=== PATIENT | male | born 1950 | race Caucasian/White ===

== ENCOUNTER 2017-09-12 16:01 | Outpatient (RCR) | payer OTHER ==
--- NOTE | 2017-08-02 17:28 | PT INITIAL EVALUATION ---
MEDICAL DIAGNOSIS: L shoulder discomfort-R/O Rotator Cuff Strain/Irritation/Tear TREATMENT DIAGNOSIS: same DATE OF ONSET: 01/30/17 SUBJECTIVE: Jamarcus Butler presents to physical therapy with complaints of L shoulder pain the started approximately 6 months ago and has been getting worse and worse with time especially with the work that he is required to perform. At resting, he rates his L shoulder pain to be 0/10. He rates his pain to be 7/10 with any motions that require IR and ER of his L shoulder. He rates his pain to be worse in the morning and at night and especially with movements that involve IR and ER of the L shoulder. He reports that he had an x -ray and it appears that he has plenty of space with mild arthritis with bone spurring. He states that the pain feels like a broad dull ache and cannot pinpoint a certain region. He reports that he pain starts in the front of his shoulder and moves to the lateral side of his shoulder before moving down into the shoulder blade. REHAB PROBLEM LIST: Increased Pain Decreased ROM Decreased Strength Decreased Endurance Decreased Function Decreased ADL's PREVIOUS MEDICAL HISTORY: See EMR OCCUPATION: [employer] OBJECTIVE: Posture: He demonstrated B rounded shoulders, increased thoracic kyphosis, and decreased lumbar lordosis. ROM: L shoulder AROM: flexion: full with normal end feel, abduction: full; painful arc; empty end feel. IR: 50% reduced, empty end feel, ER: 50% reduced, empty end feel, scaption: full, normal end feel. Strength: L shoulder: flexion: 4+/5 with pain, abduction: 4+/5 with pain, scaption: 4+/5 with pain. IR: 3+/5 with pain, ER: 3+/5 with pain. Palpation: TTP: insertional points of LHB, infraspinatus, teres minor, and subscapularis. Special Tests: (+) impingement: yocums, neers, payan-Alden, (-) full tear within RTC structures, (+) tendinopathy: LHB, infraspinatus and/or teres minor , and subscapularis. Normal scapulothoracic rhythm Mobility: Independent Gait: Normal gait mechanics ASSESSMENT: Jamarcus will benefit from skilled physical therapy addressing the listed impairments to return to prior level of function. Following the examination, we found that he has a directional preference of L shoulder internal rotation with extension and by the end of the session, we were able to abolish his painful arc and improve L shoulder IR and ER AROM to full motion with abolished pain. Short Term Goals 4 weeks: Pt will demonstrate full AROM of L shoulder (IR/ER, flexion, scaption , and abduction) with 0/10 pain to improve function and QOL. 4 weeks: Pt will demonstrate 4/5 strength with 0/10 pain in the L shoulder with flexion, extension, scaption, abduction, IR, and ER to improve function and QOL. Patient's Goals reduce shoulder and avoid surgery PLAN: Patient to be seen for Manual Therapy/STM/MET Strengthening/condition Ice/Heat Range of Motion Spinal Stabilization Work Hardening/Cond Stretching Iontophoresis Neuromuscular Re-ed Closed Chain Program Electrical Stim Posture/Body mechanics Home Exercise Program Therapeutic Activities 2x/Week for 4 Weeks If you have any questions, comments, or concerns about this report or plan, please contact me at . Thank you, Charlie Stewart, PT, DPT RAHULD
[~2017-09-12 16:01] MED LIST: ALL300 PO; INDO25CA PO; LIR18IPT SUBQ; LISI-368 PO; LOSA-51 PO; METF-410 PO; PRED20TA6 PO
--- NOTE | 2017-09-13 09:28 | PT PLAN OF CARE ---
Physician: Jamarcus Mathews MD Patient is being seen: 2x/week Therapist: Charlie Stewart, PT, DPT Medical Diagnosis: L shoulder discomfort-R/O Rotator Cuff Strain/Irritation/Tear Treatment Diagnosis: same Date of Onset: 01/30/17 Date of Initial Evaluation: 08/02/17 Date patient was last seen: 09/12/17 Number of treatments: 10 Number of cancellations/No shows: 0 INTERVENTIONS: Manual Therapy/STM/MET Strengthening/condition Ice/Heat Range of Motion Spinal Stabilization Work Hardening/Cond Stretching Iontophoresis Neuromuscular Re-ed Closed Chain Program Electrical Stim Posture/Body mechanics Home Exercise Program Therapeutic Activities GOALS: 4 weeks: Pt will demonstrate full AROM of L shoulder (IR/ER, flexion, scaption , and abduction) with 0/10 pain to improve function and QOL. MET 4 weeks: Pt will demonstrate 4/5 strength with 0/10 pain in the L shoulder with flexion, extension, scaption, abduction, IR, and ER to improve function and QOL. Progressing well PATIENT'S GOAL: reduce shoulder and avoid surgery Status of Patient's Goals: progressing well Patient Compliance: Good Prognosis: Excellent Reasons for continuing therapy: This is a progress note for Jamarcus Carrie. He reports that he feels like things are going well. He states that he feels like he has returned to full function. He reports that the deep pain has resolved. He states that he occasionally has RTC referred pain into mid lateral deltoid, however, he reports that he can improve and abolish the pain quickly with his stretch. He is progressing well within PT with the following improvements: (-) impingement tests, improved RTC strength with decreased pain, however, he continues to demonstrate RTC involvement with resisted abduction and resisted ER. He also demonstrates directional preference with repeated horizontal adduction and following 80-100 reps, he demonstrated improved strengths with abduction and ER without any pain. We will continue to improve RTC musculature to further reduce pain and improve strength to return to prior level of function. Posture: He demonstrated B rounded shoulders, increased thoracic kyphosis, and decreased lumbar lordosis. ROM: L shoulder AROM: flexion: full with normal end feel, abduction: full; normal end feel. IR: full, normal end feel, ER: full, normal end feel, scaption : full, normal end feel. Strength: L shoulder: flexion: 4+/5 with no pain, abduction: 4+/5 with pain, scaption: 4+/5 with no pain. IR:4+/5 with no pain, ER: 4/5 with no pain. Special Tests: (-) impingement: boris, marisa, Willis, (-) full tear within RTC structures, (+) tendinopathy: infraspinatus and/or teres minor. Normal scapulothoracic rhythm Mobility: Independent If you have any questions, please contact me at [phone]. Thank you, Charlie Stewart, PT, DPT MTDD
--- NOTE | 2017-09-22 17:51 | PT PLAN OF CARE ---
Physician: Jamarcus Mathews MD Patient is being seen: 2x/week Therapist: Charlie Stewart, PT, DPT Medical Diagnosis: L shoulder discomfort-R/O Rotator Cuff Strain/Irritation/Tear Treatment Diagnosis: same Date of Onset: 01/30/17 Date of Initial Evaluation: 08/02/17 Date patient was last seen: 09/21/17 Number of treatments: 11 Number of cancellations/No shows: 1 INTERVENTIONS: Manual Therapy/STM/MET Strengthening/condition Ice/Heat Range of Motion Spinal Stabilization Work Hardening/Cond Stretching Iontophoresis Neuromuscular Re-ed Closed Chain Program Electrical Stim Posture/Body mechanics Home Exercise Program Therapeutic Activities GOALS: 4 weeks: Pt will demonstrate full AROM of L shoulder (IR/ER, flexion, scaption , and abduction) with 0/10 pain to improve function and QOL. MET 4 weeks: Pt will demonstrate 4/5 strength with 0/10 pain in the L shoulder with flexion, extension, scaption, abduction, IR, and ER to improve function and QOL. MET PATIENT'S GOAL: reduce shoulder and avoid surgery Status of Patient's Goals: MET Patient Compliance: Good Prognosis: Excellent Reasons for continuing therapy: This is a discharge note for Jamarcus Butler. He reports that he feels like things are going well. He states that he feels like he has returned to full function. He reports that the deep pain has resolved. He states that he is sleeping well. He is progressing well within PT with the following improvements: (-) impingement tests and improved RTC strength with decreased pain. Today, he no longer demonstrated weakness or pain with abduction or ER. He has met all of his goals. He is independent in his HEP. As a result, he will be discharged from PT. Posture: He demonstrated B rounded shoulders, increased thoracic kyphosis, and decreased lumbar lordosis. ROM: L shoulder AROM: flexion: full with normal end feel, abduction: full; normal end feel. IR: full, normal end feel, ER: full, normal end feel, scaption : full, normal end feel. Strength: L shoulder: flexion: 4+/5 with no pain, abduction: 4+/5 with no pain , scaption: 4+/5 with no pain. IR:4+/5 with no pain, ER: 4/5 with no pain. Special Tests: (-) impingement: yocums, Willis cunningham, (-) full tear within RTC structures, (-) tendinopathy: infraspinatus and/or teres minor. Normal scapulothoracic rhythm Mobility: Independent If you have any questions, please contact me at [phone]. Thank you, Charlie Stewart, PT, DPT RAHULD
== END 2017-09-12 18:00 | disposition home or self-care (01) ==
LOC: PT 16:01
PROVIDERS: ATTEND Orthopaedic Surgery Hand Surgery
DX: M25.512 Pain in left shoulder (principal); M19.012 Primary osteoarthritis, left shoulder
CPT/HCPCS: 97161

== ENCOUNTER 2018-07-13 15:15 | Outpatient (RCR) | payer OTHER ==
--- NOTE | 2018-07-04 08:41 | PT INITIAL EVALUATION ---
MEDICAL DIAGNOSIS: low back leg pain TREATMENT DIAGNOSIS: same DATE OF ONSET: 06/04/18 SUBJECTIVE: Jamarcus Butler presents to physical therapy with complaints of low back pain radiating down his B LE's that started on June 04, 2018 as a result of no apparent reason when he was walking his dog. He reports that he felt stiffness in the am and then during the walk he felt back spasms associated with intense sharp pain down into his B LE's. He reports that he is currently seeing a chiropractor and has received laser and adjustments so far with minimal results. He reports that he has also received some traction and states that it feels better following the traction but better symptoms do not last and typically he feels worse following the day after traction. He reports that he feels like his injury is getting better. He reports that his pain is worse in the am and pm; however, during the middle of the day is his best time. He reports that it also feels better sitting with lumbar support and feels worse with sitting down without a lumbar support, standing for more than 5 to 10 minutes, and walking more than 100 feet. As a result of this low back pain and radiating pain, he reports that he has fall three times. He reports that he continues to have difficulty sleeping and is only able to sleep about 3-4 hours. He reports that he feels the low back pain about 50% of the time, anterior pain below the knees all the time, and posterior/anterior thighs sometimes. He reports in increased pain with coughing, sneezing, or straining. He reports no changes in bowel or bladder. He reports night pain. He reports that he had a laminectomy in 1983 as a result of an accident. He reports no unexplained weight loss and no recent accidents (other than the falls). Pain scale is 6 on a ten point pain scale. REHAB PROBLEM LIST: Increased Pain Decreased ROM Decreased Strength Impaired Transfers Decreased Endurance Decreased Function Decreased ADL's Decreased Mobility Decreased Gait PREVIOUS MEDICAL HISTORY: See EMR OCCUPATION: Self-employed: shoemaker [employer] OBJECTIVE: Posture: He demonstrates slumped posture with increased forward head, rounded shoulders, increased thoracic kyphosis, and decreased lumbar lordosis. ROM: Trunk AROM: flexion: moderate restriction with painful end feel. extension: NIL with ERP. side gliding R: NIL and relieved R marlow pain. side gliding L: minimal restriction with ERP. Palpation: TTP: low back pain about 50% of the time (L3-L5 central spinous process), anterior pain (tib anterior distribution) below the knees all the time, and posterior/anterior thighs sometimes Special Tests: Repeated flexion: decreased low back pain, peripheralising to B LE's below B knees on anterior side during the test and peripheralised following the test; increased flexion AROM and decreased extension AROM. Repeated extension: increased low back pain, centralizing during the movement and centralized following the movement. Mobility: Modified Independent Gait: He demonstrated the following gait mechanics with cane: antalgic gait, decreased B step lengths, and decreased velocity; it will improve when low back recovers ASSESSMENT: Jmaarcus will benefit from skilled physical therapy addressing the listed impairments. His provisional classification is posterior derangement that responded well to extension based principles. Based on his initial examination, his prognosis is excellent for a quick reversal and quick return to function if his specific exercise and posture correction is achieved as prescribed. Short Term Goals 1 week: Pt will demonstrate centralized low back pain to improve function and QOL. 2 weeks: Pt will demonstrate abolished radiating pain along with abolished low back pain to improve function and QOL. 3 weeks: Pt will demonstrate return to function without any low back pain or radiating pain to improve function and QOL. Patient's Goals get rid of pain PLAN: Patient to be seen for Manual Therapy/STM/MET Range of Motion Spinal Stabilization Work Hardening/Cond Stretching Neuromuscular Re-ed Closed Chain Program Posture/Body mechanics Home Exercise Program Therapeutic Activities 2x/Week for 3 weeks If you have any questions, comments, or concerns about this report or plan, please contact me at . Thank you, Charlie Stewart, PT, DPT MTDD
[~2018-07-13 15:15] MED LIST changes: -METF-410 PO; +METF-450 PO
--- NOTE | 2018-08-15 16:20 | PT PLAN OF CARE ---
Physician: Leida Baker MD Patient is being seen: 2x/week Therapist: Charlie Stewart, PT, DPT Medical Diagnosis: low back leg pain Treatment Diagnosis: same Date of Onset: 06/04/18 Date of Initial Evaluation: 07/03/18 Date patient was last seen: 07/13/18 Number of treatments: 5 Number of cancellations/No shows: 0 INTERVENTIONS: Manual Therapy/STM/MET Range of Motion Spinal Stabilization Work Hardening/Cond Stretching Neuromuscular Re-ed Closed Chain Program Posture/Body mechanics Home Exercise Program Therapeutic Activities GOALS: 1 week: Pt will demonstrate centralized low back pain to improve function and QOL. 2 weeks: Pt will demonstrate abolished radiating pain along with abolished low back pain to improve function and QOL. 3 weeks: Pt will demonstrate return to function without any low back pain or radiating pain to improve function and QOL. PATIENT'S GOAL: get rid of pain Status of Patient's Goals: Unknown Patient Compliance: Good Prognosis: Excellent Reasons for continuing therapy: This is a discharge note for Jamarcus Clarosarti. On our last contact, he reported the following: He reports that he is doing better. He reports that he has the most pain in the morning time. He reports that his pain continues to centralize and will every once in a while affect his R or L posterior thigh but centralizes every time with his specific exercise. He reports that he was able to work for 12 hours without taking any pain medication. He reports that he is able to walk up and down stairs. He reports that the pain is getting less and his function is getting more and more. This is the assessment on my last contact with him: He continues to demonstrate centralizing pain and extension continues to be his directional preference and his centralizing pain is starting to decrease from sharp to soreness along with increased trunk AROM in all directions. With a directional preference and centralized pain like he demonstrated, the research says that he has a 90% chance of making a full recovery with physical therapy. However, he will not schedule or call us back; therefore, he will be discharged from PT even though his prognosis is excellent based on our 5 sessions with him. Posture: He demonstrates slumped posture with increased forward head, rounded shoulders, increased thoracic kyphosis, and decreased lumbar lordosis. ROM: Trunk AROM: flexion: NIL with painful end feel. extension: NIL with ERP. side gliding R: NIL and relieved R marlow pain. side gliding L: NIL with ERP. Palpation: TTP: low back pain about 100% of the time (L3-L5 central spinous process) Special Tests: Repeated flexion: decreased low back pain, peripheralising to B LE's below B knees on anterior side during the test and peripheralised following the test; increased flexion AROM and decreased extension AROM. Repeated extension: increased low back pain, centralizing during the movement and centralized following the movement. Mobility: Independent MTDD
== END 2018-07-13 18:00 | disposition home or self-care (01) ==
LOC: PT 15:15
PROVIDERS: ATTEND Orthopaedic Surgery
DX: M54.5 Low back pain (principal); M79.604 Pain in right leg; M79.605 Pain in left leg; R29.6 Repeated falls
CPT/HCPCS: 97161

== ENCOUNTER → 2018-09-28 | Outpatient (CLI) | payer OTHER ==
--- NOTE | 2018-09-28 13:31 | RADIOLOGY IMAGING REPORT ---
FACILITY: [facility] [place] PATIENT NAME: Jamarcus Butler : 1950 MR: [id number] V: [id number] EXAM DATE: ORDERING PHYSICIAN: THONY KELLER TECHNOLOGIST: Location: [facility] Patient: Jamarcus Butler : 1950 Visit/Account:[id number] Date of Sevice: 09/28/2018 Exam type: CHEST PA LAT History: Preop, hypoxemia Comparison: November 21, 2016. Findings: When compared the prior study again noted is chronic peribronchial thickening and prominent chronic i nterstitial changes but the lungs. There is no evidence of acute pulmonary consolidation pleural eff usions or overt pulmonary edema. The cardiac silhouette is normal in size. There are spondylotic ch anges of the thoracic spine. IMPRESSION: 1. Chronic peribronchial thickening and chronic initial changes but the lungs appears similar to the prior study. Report Dictated By: Kaela Aden MD at 09/28/2018 1:26 PM Report E-Signed By: Kaela Aden MD at 09/28/2018 1:28 PM WSN:[id number]
== END ==
LOC: RAD 11:59
PROVIDERS: ATTEND Family Medicine
DX: R09.02 Hypoxemia (principal)
CPT/HCPCS: 71046

== ENCOUNTER 2018-12-12 16:19 | Outpatient (RCR) | payer OTHER ==
--- NOTE | 2018-10-31 11:06 | PT INITIAL EVALUATION ---
MEDICAL DIAGNOSIS: 2 weeks S/P L3-4 Laminectomies TREATMENT DIAGNOSIS: same, decreased strength, altered gait, and decreased balance DATE OF ONSET: 06/04/18 SUBJECTIVE: Jamarcus Butler presents to physical therapy s/p L3-4 laminectomies that was performed on the September. He reports that he was instructed to not lift more than 20 pounds, no twisting, and bending forward/backward/side to side. He reports that he is pain is so much better. He reports that he has central pain around the incision but feels like the bruising has cleared up. He rates his current pain to be 1/10. He reports that he has not felt any pain in his B LE's since the surgical intervention was performed. He reports that his biggest problems include: balance, going down stairs, standing longer than 30 minutes, transiting from sit to/from standing, ambulation, and B LE strength with his R LE being more affected than his L LE. Furthermore, he reports that his leg has not given out since the surgical intervention, but has felt like it was going to give out just the other day. He reports that he has also had spasms around the center of his low back that seem to be getting less severe and less often. Pain location is L2-L5 central. Pain scale is 1 on a ten point pain scale. REHAB PROBLEM LIST: Increased Pain Decreased ROM Decreased Strength Decreased Endurance Decreased Balance Decreased Function Decreased Mobility Decreased Gait PREVIOUS MEDICAL HISTORY: See EMR OCCUPATION: Shoemaker; owns own business OBJECTIVE: Incision is healing well; no signs or symptoms of infections Posture: He demonstrates increased thoracic kyphosis, B rounded shoulders, decreased lumbar lordosis, and forward head. ROM: Did not test trunk AROM due to recent surgical intervention Strength: B hip flexion and extension: did not test due to recent surgical intervention. B hip abduction, adduction, B knee flexion and extension, and B ankle PF and DF: 4/5 and seemed equal. Palpation: TTP around incision Sensation: Intact: L2-S1 equal B Special Tests: 6 minute walk test: 812 feet Mobility: Independent Gait: With gait and no AD: he demonstrated the following gait mechanics: increased base of support, decreased pelvic rotation, equal step lengths, normal B foot clearance, increased lateral trunk movement, and decreased velocity. Balance: He demonstrated normal balance strategies with firm surface, eyes opened or closed, and normal base of support or decreased base of support, however, he did demonstrate increased sway when the eyes were closed. When the vestibular system is isolated he is only able to maintain his balance for 5 seconds B. ASSESSMENT: Jamarcus will benefit from skilled physical therapy addressing the listed impairments to improve function and QOL based on healing parameters. Addressed sitting and standing posture and is independent Short Term Goals 6 weeks: Pt will demonstrate return to prior level of function with his gait mechanics to improve function and QOL. 6 weeks: Pt will demonstrate 5/5 B LE strength along with increased core strength to improve function and QOL. 6 weeks: Pt will improve his balance when the vestibular system is isolated from baseline to 30 seconds or greater to improve function and QOL. Patient's Goals improve strength, going down stairs, balance, and posture PLAN: Patient to be seen for Manual Therapy/STM/MET Strengthening/condition Ice/Heat Range of Motion Spinal Stabilization Work Hardening/Cond Stretching Neuromuscular Re-ed Closed Chain Program Electrical Stim Posture/Body mechanics Gait Trg/Balance Trg Home Exercise Program Therapeutic Activities 2-3x/week for 6 Weeks If you have any questions, comments, or concerns about this report or plan, please contact me at . Thank you, Charlie Stewart, PT, DPT RAHULD
--- NOTE | 2018-12-12 17:58 | PT PLAN OF CARE ---
Physician: Leonel Baker MD Patient is being seen: 2-3x/week Therapist: Charlie Stewart, PT, DPT Medical Diagnosis: 2 weeks S/P L3-4 Laminectomies Treatment Diagnosis: same, decreased strength, altered gait, and decreased balance Date of Onset: 06/04/18 Date of Initial Evaluation: 10/31/18 Date patient was last seen: 12/12/18 Number of treatments: 12 Number of cancellations/No shows: 0 INTERVENTIONS: Manual Therapy/STM/MET Strengthening/condition Ice/Heat Range of Motion Spinal Stabilization Work Hardening/Cond Stretching Neuromuscular Re-ed Closed Chain Program Electrical Stim Posture/Body mechanics Gait Trg/Balance Trg Home Exercise Program Therapeutic Activities GOALS: 6 weeks: Pt will demonstrate return to prior level of function with his gait mechanics to improve function and QOL. MET 6 weeks: Pt will demonstrate 5/5 B LE strength along with increased core strength to improve function and QOL. Progressing well 6 weeks: Pt will improve his balance when the vestibular system is isolated from baseline to 30 seconds or greater to improve function and QOL. MET PATIENT'S GOAL: improve strength, going down stairs, balance, and posture Status of Patient's Goals: Progressing well Patient Compliance: Good Prognosis: Good Reasons for continuing therapy: This is a progress note for Jamarcus Butler. He reports that he is doing well. He denies any pain. He states that he feels like his strength is getting better. He states that he can now walk up and down the stairs normally and it does not cause him an extra pain. He states that his production is getting much better at work. He reports that he has returned back to a full day of work without any problems. He reports that his walking is getting better along with his balance. Overall, he reports that he is getting closer to returning to prior level of function. He demonstrated significant improvements in his gait mechanics (increased velocity, abolished veering from R to L, and no LOB), increased core and B LE strength, increased balance strategies especially when the vestibular system is isolated, increased endurance, increased functional strength as he can perform stairs normally, and abolished low back pain and is returning closer to prior level of function. We will continue to see him for two more weeks to transition him to his home exercise program. Posture: He demonstrates increased thoracic kyphosis, B rounded shoulders, decreased lumbar lordosis, and forward head. ROM: Did not test trunk AROM due to recent surgical intervention Strength: B hip flexion and extension: did not test due to recent surgical intervention. B hip abduction, adduction, B knee flexion and extension, and B ankle PF and DF: 4+/5 and seemed equal. Special Tests: 6 minute walk test: 1111.5 feet Balance: He demonstrated normal balance strategies with firm surface, eyes opened or closed, and normal base of support or decreased base of support and when his vestibular system was isolated. However, he continued to struggle with R foot forward in tandem and was able to do it for 45 seconds and everything else was 60 seconds. Mobility: Independent If you have any questions, please contact me at [phone]. Thank you, Charlie Stewart, PT, DPT [id number]
== END 2018-12-12 18:00 | disposition home or self-care (01) ==
LOC: PT 16:19
PROVIDERS: ATTEND Orthopaedic Surgery
DX: Z98.890 Other specified postprocedural states (principal); M62.81 Muscle weakness (generalized); R26.89 Other abnormalities of gait and mobility
CPT/HCPCS: 97161